=== PATIENT | male | born 1990 | race Two or more races ===

== ENCOUNTER 2023-10-18 23:34 | Emergency (ER) | payer MEDICAID, OTHER ==
[~2023-10-18] VITALS: Ht 182.9 cm; Wt 90.9 kg
[2023-10-19] MEDS: ONDANSETRON HCL 4 MG/2 ML VIAL IM ONE (00:41)
[2023-10-19] MEDS: HYDROcodone-ACET 10/325MG TAB PO ONE (00:41)
[2023-10-19 01:55] VITALS: TEMP 98.1; O2SAT 99
[2023-10-19] MEDS ORDERED: ZOFR4T PO (01:57)
[2023-10-19] MEDS ORDERED: METR-344 PO (01:57)
[2023-10-19] MEDS ORDERED: PERCOT PO (01:57)
[2023-10-19] MEDS ORDERED: METO-281 PO (01:57)
[2023-10-19] MEDS: METOCLOPRAMIDE HCL 5MG/ml INJ 2ml VIAL IM ONE (02:12)
[2023-10-19] MEDS: HYDROmorphone HCL 2 MG/ML VL/or syr IM ONE (02:14)
[2023-10-19] MEDS: metroNIDAZOLE 500 MG TAB PO ONE (02:14)
[2023-10-19 02:34] VITALS: BP 119/61; PULSE 92; RESP 18
== END 2023-10-19 02:35 | disposition home or self-care (01) ==
LOC: ER 23:34
DX: K52.9 Noninfective gastroenteritis and colitis, unspecified (principal); M54.2 Cervicalgia; R51.9 Headache, unspecified; V43.62XA Car passenger injured in collision with other type car in traffic accident, initial encounter; Y93.89 Activity, other specified; Y92.488 Other paved roadways as the place of occurrence of the external cause; Y99.8 Other external cause status
CPT/HCPCS: 70450; 72040; 73030; 73501; 74176; 96372; 99285; J1170; J2405; J2765